=== PATIENT | male | born 1960 ===

== ENCOUNTER 2021-05-30 16:14 | Emergency (ER) | payer BC, OTHER ==
[2021-05-30] MEDS ORDERED: Sodium Chloride 0.9% 10 ML Syringe FLUSH PRN (16:29)
[2021-05-30] MEDS ORDERED: Sodium Chloride 0.9% 2.5 ML Syringe FLUSH PRN (16:29)
[2021-05-30] MEDS ORDERED: Sodium Chloride 0.9% 1,000 ML IV ONE (16:30)
--- NOTE | 2021-05-30 16:32 | EDM.PDOC ---
ED HPI GENERAL MEDICAL PROBLEM - General Time Seen by Provider: 05/30/21 16:20 - History of Present Illness INITIAL COMMENTS - FREE TEXT/NARRATIVE: History of present illness: [] The patient had a severe cold with congestion for more than a week. The last 2 or 3 days he is increasingly short of breath with chest tightness in his chest. He is coughing up phlegm. He feels headache body aches muscle aches and pain when he takes a deep breath. He smokes and drinks socially. He has been vaccinated for COVID-19 Review of systems: As per history of present illness and below otherwise all systems reviewed and negative. Past medical history: As per history of present illness and as reviewed below otherwise noncontributory. Surgical history: As per history of present illness and as reviewed below otherwise noncontributory. Social history: No reported history of drug or alcohol abuse. Family history: As per history of present illness and as reviewed below otherwise noncontributory. Physical exam: Constitutional - well developed, well-nourished and in no acute distress HEENT - normocephalic, no evidence of trauma - external nose and mouth normal - no mass in neck and no JVD - mucosae moist EYES - full EOM, PERRL, no icterus - no evidence of inflammation, injection, or drainage Respiratory - no respiratory distress, equal bilateral expansion, lungs markedly diminished in the posterior lung buchanan with wheezes especially in the left lower lung buchanan posteriorly. Cardiovascular - Regular Rhythm with S1 and S2 appreciated and no murmur, gallop or rub. GI - abdomen soft without distension or organomegaly - normal bowel sounds - no guard or rebound Musculoskeletal no gross deformity of long bones or joints - no tenderness, swelling or edema Neurologic - Alert and oriented times four - CN II-XII grossly intact - motor sensory and coordination symmetrically normal Psychiatric - appropriate mood and affect with normal thought content Hematologic - No petechiae or purpura - mucosa appropriate color and sclera not pale - normal nail bed color and refill Integument - no rash or evidence of trauma - normal turgor Diagnostics: [] Therapeutics: [] Impression: [] Plan: [] Definitive disposition and diagnosis as appropriate pending reevaluation and review of above. R side chest Pain Score (Numeric/FACES): 4 - Related Data Allergies Allergy/AdvReac Type Severity Reaction Status Date / Time No Known Allergies Allergy Verified 05/30/21 16:43 Home Meds: Home Meds Azithromycin 250 mg PO DAILY 4 Days #4 tablet 05/30/21 [Rx] buPROPion [Wellbutrin] 1 dose PO ASDIRECTED 05/30/21 [History] predniSONE [Prednisone] 60 mg PO DAILY 5 Days #15 tablet 05/30/21 [Rx] ED ROS GENERAL - Review of Systems Review Of Systems: Comprehensive ROS is negative, except as noted in HPI. ED EXAM, GENERAL - Physical Exam Exam: See Below Free Text/Narrative:: My physical exam is in the HPI #1 Interpretation EKG Interpretation Comments: EKG done 05/30/2021 at 4:31 PM sinus rhythm heart rate 64 WA 214 QT duration 435 axis -25 early progression to R wave in the precordium prolonged WA interval no prior for comparison impression no acute injury Course - Vital Signs Text/Narrative:: 1726 hrs. patient does not feel better. He still has pain in his chest and anterior chest when he coughs. Its not brought on by exertion but more by cough. The patient has coarse breath sounds and moving a little more air than prior. Sat 95% which is normal. 1853 hrs. patient no acute distress. Slightly improved pain tolerates activity without any drop in oxygen saturation and not short of breath walking. Discharged in satisfactory condition. Perhaps some level of dehydration makes the x-ray appears normal but I suspect with this prolonged episode that he has a lower respiratory tract infection. Last Recorded V/S: Last Vital Signs Temp 36.5 C 05/30/21 16:27 Pulse 68 05/30/21 18:09 Resp 18 05/30/21 18:09 BP 141/92 H 05/30/21 18:09 Pulse Ox 97 05/30/21 18:09 - Orders/Labs/Meds Orders: Active Orders 24 hr Category Date Time Status EKG Documentation Completion [RC] AM Care 05/30/21 16:29 Active RT Aerosol Therapy [RC] ASDIRECTED Care 05/30/21 18:01 Active RT Post Treatment Assessment [RC] Click to Edit Care 05/30/21 16:39 Active RT Pre-Treatment Assessment [RC] Click to Edit Care 05/30/21 16:39 Active Sodium Chloride 0.9% [Saline Flush] Med 05/30/21 16:29 Active 10 ml FLUSH ASDIRECTED PRN Sodium Chloride 0.9% [Saline Flush] Med 05/30/21 16:29 Active 2.5 ml FLUSH ASDIRECTED PRN Saline Lock Insert [OM.PC] Stat Oth 05/30/21 16:29 Ordered Medication Orders Sodium Chloride (Sodium Chloride 0.9% 10 Ml Syringe) 10 ml FLUSH ASDIRECTED PRN PRN Reason: Keep Vein Open Last Admin: 05/30/21 16:44 Dose: 10 ml Documented by: BHUPINDER Sodium Chloride (Sodium Chloride 0.9% 2.5 Ml Syringe) 2.5 ml FLUSH ASDIRECTED PRN PRN Reason: Keep Vein Open Last Admin: 05/30/21 16:43 Dose: 2.5 ml Documented by: BHUPINDER Labs: Laboratory Tests 05/30/21 05/30/21 05/30/21 Range/Units 14:35 14:35 16:35 WBC 7.84 (4.0-11.0) K/uL RBC 4.59 (4.50-5.90) M/uL Hgb 15.0 (13.0-17.0) g/dL Hct 42.9 (38.0-50.0) % MCV 93.5 (80.0-98.0) fL MCH 32.7 H (27.0-32.0) pg MCHC 35.0 (31.0-37.0) g/dL RDW Std Deviation 43.3 (28.0-62.0) fl RDW Coeff of Kelsea 13 (11.0-15.0) % Plt Count 189 (150-400) K/uL MPV 9.70 (7.40-12.00) fL Neut % (Auto) 59.4 (48.0-80.0) % Lymph % (Auto) 31.6 (16.0-40.0) % [place] % (Auto) 5.9 (0.0-15.0) % Eos % (Auto) 2.2 (0.0-7.0) % Baso % (Auto) 0.9 (0.0-1.5) % Neut # (Auto) 4.7 (1.4-5.7) K/uL Lymph # (Auto) 2.5 H (0.6-2.4) K/uL [place] # (Auto) 0.5 (0.0-0.8) K/uL Eos # (Auto) 0.2 (0.0-0.7) K/uL Baso # (Auto) 0.1 (0.0-0.1) K/uL Nucleated RBC % 0.0 /100WBC Nucleated RBCs # 0 K/uL Sodium 139 (136-148) mmol/L Potassium 3.7 (3.5-5.1) mmol/L Chloride 102 (98-107) mmol/L Carbon Dioxide 27.2 (21.0-32.0) mmol/L BUN 11 (7.0-18.0) mg/dL Creatinine 1.0 (0.8-1.3) mg/dL Est Cr Clr Drug Dosing 88.38 mL/min Estimated GFR (MDRD) > 60.0 ml/min Glucose 133 H (74-106) mg/dL Calcium 8.4 L (8.5-10.1) mg/dL Total Bilirubin 0.4 (0.2-1.0) mg/dL AST 16 (15-37) IU/L ALT 27 (14-63) IU/L Alkaline Phosphatase 105 (46-116) U/L Troponin I < 0.050 (0.000-0.056) ng/mL Total Protein 6.9 (6.4-8.2) g/dL Albumin 3.7 (3.4-5.0) g/dL Globulin 3.2 (2.6-4.0) g/dL Albumin/Globulin Ratio 1.2 (0.9-1.6) SARS-CoV-2 RNA (JEANETH) NEGATIVE (NEGATIVE) Meds: Medications Generic Name Dose Route Start Last Admin Trade Name Freq PRN Reason Stop Dose Admin Sodium Chloride 10 ml 05/30/21 16:29 05/30/21 16:44 Sodium Chloride 0.9% 10 Ml Syringe FLUSH 10 ml ASDIRECTED PRN Administration Keep Vein Open Sodium Chloride 2.5 ml 05/30/21 16:29 05/30/21 16:43 Sodium Chloride 0.9% 2.5 Ml Syringe FLUSH 2.5 ml ASDIRECTED PRN Administration Keep Vein Open Discontinued Medications Generic Name Dose Route Start Last Admin Trade Name Freq PRN Reason Stop Dose Admin Albuterol 8 gm 05/30/21 16:38 05/30/21 16:43 Albuterol 8 Gm Inhaler INH 05/30/21 16:39 1 inh ONETIME STA Administration Albuterol/Ipratropium 3 ml 05/30/21 18:01 05/30/21 18:07 Albuterol/Ipratropium 3.0-0.5 Mg/3 Ml Neb Soln NEB 05/30/21 18:02 3 ml ONETIME ONE Administration Sodium Chloride 1,000 mls @ 1,000 mls/hr 05/30/21 16:30 05/30/21 16:43 Normal Saline IV 05/30/21 17:29 1,000 mls/hr .Bolus ONE Administration Methylprednisolone Sodium 17 mls @ 100 mls/hr 05/30/21 17:25 05/30/21 17:34 Succinate 125 mg/ Sodium IV 05/30/21 17:39 Not Given Chloride ONETIME ONE Methylprednisolone Sodium Succinate 125 mg 05/30/21 17:32 05/30/21 17:34 Methylprednisolone Sodium Succinate 125 Mg/2 Ml Sdv IVPUSH 05/30/21 17:33 125 mg ONETIME ONE Administration Methylprednisolone Sodium Succinate 125 mg 05/30/21 17:32 05/30/21 17:34 Methylprednisolone Sodium Succinate 125 Mg/2 Ml Sdv IVPUSH 05/30/21 17:33 Not Given ONETIME ONE Methylprednisolone Sodium Succinate Confirm 05/30/21 17:32 05/30/21 17:34 Methylprednisolone Sodium Succinate 125 Mg/2 Ml Sdv Administered 05/30/21 17:33 Not Given Dose 125 mg .ROUTE .STK-MED ONE Departure - Departure Time of Disposition: 18:54 Disposition: Home, Self-Care 01 Condition: Good Clinical Impression: Lower respiratory tract infection, Bronchospasm, Chest wall pain - Discharge Information Prescriptions: Azithromycin 250 mg PO DAILY 4 Days #4 tablet predniSONE [Prednisone] 60 mg PO DAILY 5 Days #15 tablet Instructions: Nonspecific Chest Pain, Adult, [id number], Bronchospasm, Adult, [id number], Community-Acquired Pneumonia, Adult, [id number] Referrals: PCP,None [Ordering Only Provider] - Additional Instructions: Drink plenty of fluids. That is important as any of the other things. Your x- ray did not demonstrate pneumonia but your clinical behavior and prolonged course suggest there is a lower respiratory tract infection that probably did not show up because of dehydration [facility] [address] [place] [address] [facility] [address] [place] [address] The following information is given to patients seen in the emergency department who are being discharged to home. This information is to outline your options for follow-up care. We provide all patients seen in our emergency department with a follow-up referral. The need for follow-up, as well as the timing and circumstances, are variable depending upon the specifics of your emergency department visit. If you don't have a primary care physician on staff, we will provide you with a referral. We always advise you to contact your personal physician following an emergency department visit to inform them of the circumstance of the visit and for follow-up with them and/or the need for any referrals to a consulting specialist. The emergency department will also refer you to a specialist when appropriate. This referral assures that you have the opportunity for follow-up care with a specialist. All of these measure are taken in an effort to provide you with optimal care, which includes your follow-up. Under all circumstances we always encourage you to contact your private physician who remains a resource for coordinating your care. When calling for follow-up care, please make the office aware that this follow-up is from your recent emergency room visit. If for any reason you are refused follow-up, please contact the [facility] Emergency Department at and asked to speak to the emergency department charge nurse. Sepsis Event Note (ED) - Focused Exam Vital Signs: Vital Signs Temp Pulse Resp BP Pulse Ox 05/30/21 18:09 68 18 141/92 H 97 05/30/21 17:35 94 18 148/85 H 97 05/30/21 17:11 62 18 129/72 97 05/30/21 16:55 93 18 139/76 97 05/30/21 16:27 36.5 C 72 20 133/71 95 - My Orders Last 24 Hours: My Active Orders 05/30/21 16:29 EKG Documentation Completion [RC] AM Sodium Chloride 0.9% [Saline Flush] 10 ml FLUSH ASDIRECTED PRN Sodium Chloride 0.9% [Saline Flush] 2.5 ml FLUSH ASDIRECTED PRN Saline Lock Insert [OM.PC] Stat 05/30/21 16:39 RT Post Treatment Assessment [RC] Click to Edit RT Pre-Treatment Assessment [RC] Click to Edit 05/30/21 18:01 RT Aerosol Therapy [RC] ASDIRECTED - Assessment/Plan Last 24 Hours: My Active Orders 05/30/21 16:29 EKG Documentation Completion [RC] AM Sodium Chloride 0.9% [Saline Flush] 10 ml FLUSH ASDIRECTED PRN Sodium Chloride 0.9% [Saline Flush] 2.5 ml FLUSH ASDIRECTED PRN Saline Lock Insert [OM.PC] Stat 05/30/21 16:39 RT Post Treatment Assessment [RC] Click to Edit RT Pre-Treatment Assessment [RC] Click to Edit 05/30/21 18:01 RT Aerosol Therapy [RC] ASDIRECTED
[2021-05-30] MEDS ORDERED: Albuterol 8 GM Inhaler INH STA (16:38)
[2021-05-30 17:08] LABS: BLOOD UREA NITROGEN,BUN 11 mg/dL (7.0-18.0); CARBON DIOXIDE,CO2 27.2 mmol/L (21.0-32.0); CHLORIDE,CL 102 mmol/L (98-107); GLUCOSE RANDOM 133 mg/dL (74-106); POTASSIUM,K 3.7 mmol/L (3.5-5.1); SODIUM,NA 139 mmol/L (136-148)
--- NOTE | 2021-05-30 17:11 | CR ---
INDICATION: cough and dyspnea TECHNIQUE: Chest 1 view. COMPARISON: None. FINDINGS: Cardiovascular and mediastinum: Heart size and vasculature are normal in caliber and appearance. Mediastinum is within normal limits. Lungs and pleural space: Lungs are clear. No sign of infiltrate or mass. No sign of pleural effusion. No pneumothorax. Bones and soft tissues: No significant findings. IMPRESSION: Unremarkable chest. Dictated by: Moises Domínguez MD @ 05/30/2021 17:08:57 (Electronically Signed)
[2021-05-30] MEDS ORDERED: METHYLPREDNISOLONE SOD SUCC IV ONE (17:25)
[2021-05-30] MEDS ORDERED: SODIUM CHLORIDE 0.9% IV ONE (17:25)
[2021-05-30] MEDS ORDERED: methylPREDNISolone Sodium Succinate 125 MG/2 ML SDV IVPUSH ONE ×2 (17:32)
[2021-05-30] MEDS ORDERED: methylPREDNISolone Sodium Succinate 125 MG/2 ML SDV ONE (17:32)
[2021-05-30] MEDS ORDERED: Albuterol/Ipratropium 3.0-0.5 MG/3 ML Neb Soln NEB ONE (18:01)
[2021-05-30] MEDS ORDERED: Azithromycin 250 MG Tab PO STA (18:53)
== END 2021-05-30 19:20 | disposition home or self-care (01) ==
LOC: MW.ED 16:14
DX: J98.01 Acute bronchospasm (principal); J22 Unspecified acute lower respiratory infection; F17.200 Nicotine dependence, unspecified, uncomplicated; Z20.822 Contact with and (suspected) exposure to COVID-19
CPT/HCPCS: 36415; 71045; 80053; 84484; 85025; 87635; 93005; 94640; 96374; 99285; A9270; J2930; J7030; J7620-GY; U0002